=== PATIENT | male | born 1995 | race Caucasian/White ===

== ENCOUNTER 2017-01-25 03:15 | Emergency (ER) | payer BC ==
[~2017-01-25] VITALS: Ht 177.8 cm; Wt 70.3 kg
[~2017-01-25 03:15] MED LIST: BUPR-96 PO; DULO20CA PO; EPIN0.3P2; GABA-532 PO; GABA-534 PO; METH1PAT8 TP; PROP10TA10 PO; SERT100T PO
--- NOTE | 2017-01-25 03:20 | NUR ---
21 yo male bb self. pt is alert x 3, c/o left lower abd pain. pt assisted to er bed. skin warm and dry, rr even and unalbored. pt gowned, placed on sales promotion officer. awaiting orders from provider, will continue to monitor
[2017-01-25] MEDS ORDERED: KETOROLAC TROMETHAMINE INJ 30 MG/ML VIAL ONE ×2 (03:33→04:33)
[2017-01-25] MEDS ORDERED: ONDANSETRON HCL/PF 4 MG/2 ML VIAL ONE (03:33)
[2017-01-25] MEDS ORDERED: IV SET PRIMARY 1 EA INFUS.SET MC ONE (03:33)
[2017-01-25] MEDS ORDERED: IV NS 0.9% 1,000 ML ONE (03:33)
--- NOTE | 2017-01-25 03:35 | NUR ---
20g right ac iv started. blood sample obtained and sent to lab. medicated pt as ordered
[2017-01-25 03:52] LABS: BASOPHILS % (AUTO) 0.6 % (0.0-2.0); EOSINOPHILS # (AUTO) 0.2 /CMM (0.0-0.7); EOSINOPHILS % (AUTO) 3.9 % (0.0-6.0); HEMATOCRIT 47 % (39-51); LYMPHOCYTES # (AUTO) 2.3 /CMM (0.8-4.8); LYMPHOCYTES % (AUTO) 43.8 % (20.0-44.0); MEAN CORPUSCULAR HEMOGLOBIN 31 PG (26.0-33.0); MEAN CORPUSCULAR HGB CONC 34 g/dl (31.0-36.0); MEAN CORPUSCULAR VOLUME 91 fL (80-96); MONOCYTES # (AUTO) 0.3 /CMM (0.1-1.30); MONOCYTES % (AUTO) 6.2 % (2.0-12.0); NEUTROPHILS # (AUTO) 2.4 /CMM (1.8-8.9); NEUTROPHILS % (AUTO) 45.5 % (43.0-81.0); PLATELET COUNT (AUTO) 239 /CMM (150-450); RDW COEFFICIENT OF VARIATION 12.5 (11.5-15.0); RED BLOOD CELL COUNT(AUTO) 5.23 MIL/uL (4.5-6.0); WHITE BLOOD COUNT (AUTO) 5.2 K/uL (4.3-11.0)
[2017-01-25] MEDS ORDERED: IV NS 0.9% 1,000 ML BAG IV ONE (04:00)
[2017-01-25] MEDS ORDERED: ONDANSETRON HCL/PF 4 MG/2 ML VIAL IVP ONE (04:00)
[2017-01-25] MEDS ORDERED: KETOROLAC TROMETHAMINE INJ 30 MG/ML VIAL IV ONE ×2 (04:00→05:00)
[2017-01-25 04:09] LABS: ALBUMIN 4.2 g/dL (3.4-5.0); BILIRUBIN,DIRECT 0.1 mg/dL (0.0-0.2); BILIRUBIN,TOTAL 0.3 mg/dL (0.2-1.0); POTASSIUM 3.9 mmol/L (3.5-5.1); TOTAL PROTEIN, SERUM 7.1 g/dL (6.4-8.2)
--- NOTE | 2017-01-25 04:16 | NUR ---
pt restuner from ct via gurney by radiology team
--- NOTE | 2017-01-25 04:44 | NUR ---
medictaed pt as ordered
[2017-01-25 06:20] LABS: APPEARANCE,URINE CLEAR (CLEAR); BILIRUBIN,URINE NEGATIVE (NEGATIVE); BLOOD, URINE 1+ Ery/uL (NEGATIVE); COLOR,URINE YELLOW (YELLOW); KETONES,URINE NEGATIVE (NEGATIVE); LEUKOCYTE ESTERASE ,URINE NEGATIVE (NEGATIVE); NITRITE, URINE NEGATIVE (NEGATIVE); PH,URINE 6.5 (5.0-8.0); PROTEIN,URINE NEGATIVE (NEGATIVE); UGLUCOSE NEGATIVE (NEGATIVE); UROBILINOGEN,URINE 0.2 EU/dL (0.2)
--- NOTE | 2017-01-25 06:25 | NUR ---
PT RESTING IN ER BED, NAD NOTED, PT STATES THE PAIN IS GETTING BETTER
[2017-01-25 06:26] LABS: ADD URINE CULTURE NO; BACTERIA,URINE None seen /HPF (None Seen); SQUAMOUS EPITHELIAL CELL,UR Few /HPF (None Seen); WBC,URINE NONE SEEN /HPF (0-3)
[2017-01-25 06:56] VITALS: BP 126/71
--- NOTE | 2017-01-25 06:56 | NUR ---
Patient discharged to home in stable condition. Written and verbal after care instructions given. Patient verbalizes understanding of instruction.IV removed. Catheter intact and site benign. Pressure and 4x4 applied to site. No bleeding noted. PT ambulatory with a steady gait VITAL SIGNS WITHIN NORMAL LIMITS.
== END 2017-01-25 06:57 | disposition home or self-care (01) ==
LOC: ER 03:21
DX: R10.32 Left lower quadrant pain (principal); N20.0 Calculus of kidney; F41.9 Anxiety disorder, unspecified; N45.1 Epididymitis; Z88.8 Allergy status to other drugs, medicaments and biological substances
CPT/HCPCS: 36415; 80048-TC; 80076-TC; 81000-TC; 83690-TC; 85025-TC; A4606; J1885; J2405; J7030; Z7610